=== PATIENT | male | born 1995 | race Caucasian/White ===

== ENCOUNTER 2016-11-07 16:07 | Emergency (ER) | payer BC ==
[2016-11-07 17:16] VITALS: BP 156/82
--- NOTE | 2016-11-07 17:49 | UC ---
Lower Extremity/Ankle HPI - HPI Summary HPI Summary: Sudden onset pain "deep" in R groin during [employer] game 5 days ago. Has had this same pain in the past that has resolved on its own. Pain radiates to R thigh, denies numbness, tingling, or bowel/bladder dysfunction. Denies testicular pain, scrotal swelling, or penile drainage. - History of Current Complaint Chief Complaint: UCGeneralIllness Stated Complaint: PERSONAL Time Seen by Provider: 11/07/16 17:24 Hx Obtained From: Patient Onset/Duration: Sudden Onset Severity Initially: Severe Severity Currently: Moderate Aggravating Factor(s): Ambulation Alleviating Factor(s): Rest Able to Bear Weight: Yes - Allergies/Home Medications Allergies/Adverse Reactions: Allergies Allergy/AdvReac Type Severity Reaction Status Date / Time No Known Allergies Allergy Verified 11/07/16 17:16 PMH/Surg Hx/FS Hx/Imm Hx - Surgical History Surgical History: Yes Surgery Procedure, Year, and Place: [place] - Family History Known Family History: Positive: Hypertension - Social History Occupation: Student Lives: Alone Alcohol Use: Weekly Substance Use Type: Marijuana Smoking Status (MU): Never Smoked Tobacco Review of Systems Constitutional: Negative Skin: Negative Eyes: Negative ENT: Negative Respiratory: Negative Cardiovascular: Negative Gastrointestinal: Negative Genitourinary: Negative Motor: Negative Neurovascular: Negative Musculoskeletal: Negative Neurological: Negative Psychological: Negative All Other Systems Reviewed And Are Negative: Yes Physical Exam Triage Information Reviewed: Yes Appearance: Well-Appearing, Pain Distress - with certain movements Vital Signs: Initial Vital Signs Temp 98.6 F 11/07/16 17:10 Pulse 73 11/07/16 17:10 Resp 18 11/07/16 17:10 BP 156/82 11/07/16 17:10 Pulse Ox 100 11/07/16 17:10 Vital Signs Reviewed: Yes Eye Exam: Normal Eyes: Positive: Conjunctiva Clear ENT Exam: Normal ENT: Positive: Normal ENT inspection, Hearing grossly normal, Pharynx normal, TMs normal Dental Exam: Normal Neck exam: Normal Neck: Positive: Supple, Nontender, No Lymphadenopathy Respiratory Exam: Normal Respiratory: Positive: Chest non-tender, Lungs clear, Normal breath sounds, No respiratory distress, No accessory muscle use Cardiovascular Exam: Normal Cardiovascular: Positive: RRR, No Murmur Abdominal Exam: Other - no hernia noted Abdomen Description: Positive: Nontender, Soft. Negative: CVA Tenderness (R), CVA Tenderness (L) Musculoskeletal Exam: Normal, Other - no back tenderness, no palpable muscular tenderness Musculoskeletal: Positive: Strength Intact, ROM Intact Neurological Exam: Normal, Other - DTRs 2+ BLE Neurological: Positive: Alert, Muscle Tone Normal Psychological Exam: Normal Skin Exam: Normal - Additional Comments genital exam performed, testes nontender, descended bilat, no hernias, scrotal masses, or scrotal swelling. Epididymis nontender bilat. No penile drainage. Lower Extremity Course/Dx - Differential Dx/Diagnosis Provider Diagnoses: R groin/pelvic floor strain. elevated blood pressure due to discomfort. Discharge - Discharge Plan Condition: Stable Disposition: HOME Prescriptions: Naproxen Sodium 500 mg PO BID #20 tab Patient Education Materials: Groin Strain (ED) Referrals: Non Staff,Doctor [Primary Care Provider] - Additional Instructions: Though it seems obvious, "if it hurts don't do it!" can be difficult advice to follow. Avoid any lower-body exercise until you see a physical therapist. If you develop testicular pain, scrotal swelling, or other severe symptoms, please go to the emergency department.
== END 2016-11-07 18:00 | disposition home or self-care (01) ==
LOC: UCCORT 16:07
DX: S39.011A Strain of muscle, fascia and tendon of abdomen, initial encounter (principal); S39.013A Strain of muscle, fascia and tendon of pelvis, initial encounter; X58.XXXA Exposure to other specified factors, initial encounter; Y93.74 Activity, frisbee; Y92.9 Unspecified place or not applicable
CPT/HCPCS: 99202; G0463